=== PATIENT | female | born 1960 | race Caucasian/White ===

== ENCOUNTER 2018-08-09 17:17 | Emergency (ER) | payer MEDICAID ==
[~2018-08-09] VITALS: Ht 160 cm; Wt 104.3 kg
[~2018-08-09 17:17] MED LIST: ACYCLOVIR800 MG PO; CALCIUM500 M1 PO; GABAPENTIN300 MG PO; KEFLEX500 MG PO; LISINOPRIL20 MG PO; OXYCODONE HCL5 MG PO; PROPRANOLOL HCL20 MG PO; SPIRONOLACTONE50 MG PO; WARFARIN SODIUM5 MG PO; XIFAXAN550 MG PO
[2018-08-09] MEDS ORDERED: SENNA LAXATIVE8.6 MG PO (17:51)
[2018-08-09] MEDS ORDERED: XIFAXAN550 MG PO (17:53)
[2018-08-09] MEDS ORDERED: TUSSIN COU15 MG/5 M1 PO (17:54)
[2018-08-09] MEDS ORDERED: VITAMIN E400 UNI5 PO (18:08)
[2018-08-09] MEDS ORDERED: STOOL SOFTENER100 M1 PO (18:08)
[2018-08-09] MEDS ORDERED: OYSTER SHELL C500 MG PO (18:09)
[2018-08-09] MEDS ORDERED: OMEPRAZOLE20 MG PO (18:09)
[2018-08-09] MEDS ORDERED: CEPACOL SORE T1 EAC5 MM (18:11)
[2018-08-09] MEDS ORDERED: PROAIR RESPICL90 MCG INH (18:11)
== END 2018-08-09 20:44 | disposition home or self-care (01) ==
LOC: ED 17:17
DX: B34.9 Viral infection, unspecified (principal); Z88.5 Allergy status to narcotic agent; Z79.899 Other long term (current) drug therapy; Z79.01 Long term (current) use of anticoagulants
CPT/HCPCS: 71046; 87502; 99284-25